=== PATIENT | male | born 1980 | race Caucasian/White ===

== ENCOUNTER 2023-09-08 16:59 | Emergency (ER) | payer BC, SELFPAY ==
[2023-09-08 17:35] VITALS: BP 119/78; PULSE 107; RESP 20; TEMP 37.5; O2SAT 95; BMI 28.1
[2023-09-08 18:25] LABS: PCR FLU A Negative PCR FLU A (Negative); PCR FLU B Negative PCR FLU B (Negative); PCR RSV Negative PCR RSV (Negative)
--- NOTE | 2023-09-08 18:36 | ED.GENADULT ---
HPI - General Adult General Time Seen by Provider: 18:36 Date Seen: 09/08/23 Chief complaint: Cough Stated complaint: Cold symptoms, bronchitis? Time Seen by Provider: 09/08/23 18:18 Source: patient Mode of arrival: ambulatory Limitations: no limitations History of Present Illness HPI narrative: London is a 42-year-old male no past medical history presents emerged department via private car and self with cold-like symptoms. Patient states symptoms started 3 weeks ago, he had ongoing nasal congestion, sore throat and sinus pressure, patient has had a cough minimal, nonproductive, no shortness of breath or chest pain. No fevers or chills, denies any headache, nausea vomiting, abdominal pain, no diarrhea or urinary complaints. Patient usually has cold which resolve over time, this 1 has persisted, with increased sinus congestion, ear fullness and and postnasal drainage. Sinus drainage has been green in color, no history of any sinusitis, patient does smoke 1 pack per day. He is not vaccinated against COVID, patient has had COVID twice in the past. Denies any dizziness or lightheadedness. No sick contacts. Due to persistent symptoms he presents emergency department Related Data Previous Rx's Medication Instructions Recorded amoxicillin 875 mg tablet 875 mg PO BID 10 days #20 tabs 09/08/23 Allergies Allergy/AdvReac Type Severity Reaction Status Date / Time No Known Drug Allergies Allergy Verified 09/08/23 17:39 Review of Systems Status of ROS: Reports: 10 or more systems reviewed and unremarkable except as noted in History and below PFSH PFSH Social History Smoking Status: Current every day smoker What tobacco products do you use: cigarettes How often do you have a drink containing alcohol: never AUDIT-C Alcohol total score: 0 Non-prescribed substance use: marijuana (any form) Exam Narrative: Exam Narrative: General: No obvious distress sitting comfortably HEENT: Oropharynx shows mild post oropharyngeal erythema, no adenopathy, bilateral TMs with cloudy effusion, mild left TM erythema. Tender to palpation of frontal and maxillary sinuses, worse with leaning forward. Lungs: Clear to auscultation bilaterally Heart; normal sinus rhythm S1-S2 Muscle skeletal: +5 strength upper lower extremities Neuro: Alert awake and oriented x3 Const: Vital Signs, click to edit/add: Vital Signs - 24 hr 09/08/23 17:35 Temperature 99.5 F Pulse Rate [Pulse Oximeter] 107 H Respiratory Rate 20 Blood Pressure [Ri ght Upper Arm] 119/78 Pulse Oximetry 95 Oxygen Delivery Me thod Room Air Course Course ED Course: 6:30 PM: AIDET performed, vitals are normal at this time, mild sinus tachycardia. Workup will include SARs/influenza/RSV nasopharyngeal swab, likely treat with amoxicillin 875 mg b.i.d. over the next 10 days due to ongoing sinus congestion, discussed using Afrin [id number]. Differential diagnosis include but not limited to viral illness, pneumonia, strep pharyngitis, viral pharyngitis, COVID-19, influenza a/B, RSV bronchitis, acute sinusitis, otitis externa and media, allergic rhinitis, postnasal drip, medication side effect. Reevaluation(s) Reevaluation #1: Plan to discharge, SARs/influenza/RSV nasopharyngeal swabs were negative, he will follow up with primary care provider over the next 7-10 days. Reasons return were given. Vital Signs Vital signs: Initial Vital Signs Temperature 99.5 F 09/08/23 17:35 Temperature Source Temporal Artery Scan 09/08/23 17:35 Pulse Rate 107 H 09/08/23 17:35 Pulse Rhythm Regular 09/08/23 17:35 Respiratory Rate 20 09/08/23 17:35 Blood Pressure 119/78 09/08/23 17:35 Blood Pressure Mean 91 09/08/23 17:35 Blood Pressure Position Sitting 09/08/23 17:35 Pulse Oximetry 95 09/08/23 17:35 Oxygen Delivery Method Room Air 09/08/23 17:35 Vital Signs Temperature 99.5 F 09/08/23 17:35 Pulse Rate 107 H 09/08/23 17:35 Respiratory Rate 20 09/08/23 17:35 Blood Pressure 119/78 09/08/23 17:35 Pulse Oximetry 95 09/08/23 17:35 Oxygen Delivery Method Room Air 09/08/23 17:35 Temperature 99.5 F 09/08/23 17:35 Pulse Rate 107 H 09/08/23 17:35 Respiratory Rate 20 09/08/23 17:35 Blood Pressure 119/78 09/08/23 17:35 Pulse Oximetry 95 09/08/23 17:35 Oxygen Delivery Method Room Air 09/08/23 17:35 Medical Decision Making Lab Data Labs: Lab Results 09/08/23 Range/Units 17:40 SARS-CoV-2 (PCR) Negative SARS-CoV-2 (Negative) Influenza Type A (PCR) Negative PCR FLU A (Negative) Influenza Type B (PCR) Negative PCR FLU B (Negative) RSV (PCR) Negative PCR RSV (Negative) Discharge Plan Discharge Clinical Impression: Sinusitis, Upper respiratory infection, viral Patient Disposition: Home, Self-Care Condition: Improved Instructions: Sinusitis (ED), Upper Respiratory Infection (ED) Additional Instructions: Amoxicillin 875 mg twice daily for the next 10 days, [id number] Afrin or saline nasal spray, for ongoing nasal congestion, follow-up with primary care provider over the next 7-10 days for ER followup and recheck. Prescriptions: New amoxicillin 875 mg tablet 875 mg PO BID 10 Days Qty: 20 0RF Stand Alone Forms: [employer] Info Instructions
[2023-09-08 18:41] LABS: SARS PCR* Negative SARS-CoV-2 (Negative)
== END 2023-09-08 19:11 | disposition home or self-care (01) ==
LOC: ED 19:08
PROVIDERS: Emergency Provider Student in an Organized Health Care Education/Training Program
DX: J32.9 Chronic sinusitis, unspecified (principal); J06.9 Acute upper respiratory infection, unspecified
CPT/HCPCS: 87631; 99283; 99284

== ENCOUNTER 2023-11-06 23:02 | Emergency (ER) | payer OTHER, SELFPAY ==
[2023-11-06 23:09] VITALS: BP 136/82; PULSE 91; RESP 16; TEMP 36.5; O2SAT 97; BMI 32.3
--- NOTE | 2023-11-06 23:12 | CRLHL7_ITS ---
For Patients: As a result of the Century Cures Act, medical imaging exams and procedure reports are released immediately into your electronic medical record. You may view this report before your referring provider. If you have questions, please contact your health care provider. Indication: Fall. Shoulder pain. Technique: Three views of the left shoulder. Comparison: None Findings/Impression: No acute fracture or dislocation. Glenohumeral and acromioclavicular joint alignments are anatomic. Productive osseous changes of the distal left clavicle, may reflect chronic sequela of remote trauma. Visualized portions of the lungs are grossly clear. Dictated by Erlinda Nettles MD @ 11/06/2023 11:42:24 PM (Electronically Signed)
--- NOTE | 2023-11-06 23:15 | ED_ITS ---
HPI - Extremity Problem General Date Seen: 11/06/23 Chief complaint: Shoulder Injury/Pain Stated complaint: Shoulder Injury at work - L Shoulder. 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 He initially tried to go to the clinic, but he worked through this and was unable to get to the clinic but tonight because the pain, he comes in today to be seen. No previous history of shoulder issues, no numbness tingling or weakness no other injury to his neck back or shoulders, no loss of conscious associated with this any did take some ibuprofen tonight. Any sort of pain with any sort abduction now, with less range of motion, both internal and external rotation of his left arm causes pain also. MD Complaint: extremity pain Onset (ago): hour(s) Pain Consistency: constant Location: left Quality: stabbing and sharp Relieving factors: nothing Exacerbating factors: range of motion Associated symptoms: denies other symptoms Related Data Allergies Allergy/AdvReac Type Severity Reaction Status Date / Time No Known Drug Allergies Allergy Verified 11/06/23 23:12 Review of Systems Status of ROS: Reports: 10 or more systems reviewed and unremarkable except as noted in History and below PFSH PFSH Social History Smoking Status: Current every day smoker What tobacco products do you use: cigarettes How often do you have a drink containing alcohol: never AUDIT-C Alcohol total score: 0 Non-prescribed substance use: marijuana (any form) Exam Narrative: Exam Narrative: On examination patient is in no apparent distress, pleasant alert, he is able to abduct to almost 70?, pain is over the anterior part of his shoulder. There is no loss of symmetry left versus right. 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 Internal external rotation with his arm abducted, is entirely normal. Neck has full range of motion with no limitation also. Const: Vital Signs, click to edit/add: Vital Signs - 24 hr 11/06/23 23:09 Temperature 97.7 F Pulse Rate [Pulse Oximeter] 91 Respiratory Rate 16 Blood Pressure [Ri ght Upper Arm] 136/82 Pulse Oximetry 97 Oxygen Delivery Me thod Room Air Documenting provider has reviewed patient's vital signs: yes Course Course ED Course: I went over the x-rays with the patient, old distal clavicle air fractures noted, which he reminded me of. No evidence of any dislocation or otherwise fracture seen. I suspect that this is rotator cuff injury, although I do not think it is a complete tear. I recommend non sling in him, use of some Toradol, ibuprofen Tylenol. And follow-up next week if ongoing signs symptoms, he was comfortable this ice over the weekend. Vital Signs Vital signs: Initial Vital Signs Temperature 97.7 F 11/06/23 23:09 Temperature Source Temporal Artery Scan 11/06/23 23:09 Pulse Rate 91 11/06/23 23:09 Respiratory Rate 16 11/06/23 23:09 Blood Pressure 136/82 11/06/23 23:09 Blood Pressure Mean 100 11/06/23 23:09 Pulse Oximetry 97 11/06/23 23:09 Oxygen Delivery Method Room Air 11/06/23 23:09 Vital Signs Temperature 97.7 F 11/06/23 23:09 Pulse Rate 91 11/06/23 23:09 Respiratory Rate 16 11/06/23 23:09 Blood Pressure 136/82 11/06/23 23:09 Pulse Oximetry 97 11/06/23 23:09 Oxygen Delivery Method Room Air 11/06/23 23:09 Temperature 97.7 F 11/06/23 23:09 Pulse Rate 91 11/06/23 23:09 Respiratory Rate 16 11/06/23 23:09 Blood Pressure 136/82 11/06/23 23:09 Pulse Oximetry 97 11/06/23 23:09 Oxygen Delivery Method Room Air 11/06/23 23:09 Medications Administered Medications: Discontinued Medications Generic Name Dose Route Start Last Admin Trade Name Freq PRN Reason Stop Dose Admin Acetaminophen 1,000 mg 11/06/23 23:12 11/06/23 23:32 Acetaminophen 500 Mg Tablet PO 11/06/23 23:13 1,000 mg ONCE ONE Administration Ketorolac Tromethamine 30 mg 11/06/23 23:53 11/07/23 00:04 Ketorolac 30 Mg/Ml Inj IM 11/06/23 23:54 30 mg ONCE ONE Administration MDM - Extremity (Nontraumatic) MDM Narrative Medical decision making narrative: I discussed with him, that we should get an x-ray, I do suspect that he did or at least did not dislocated shoulder, he may a subluxed, but more likely this is rotator cuff injury, I am not getting a feeling that this is an AC joint injury, elbow injury, tear of his biceps, or a radiculopathy type situation Imaging Data Shoulder X: Attestation: I have reviewed the pertinent imaging results. My impression: No evidence dislocation fracture, old well-healed clot distal clavicle fracture noted Discharge Plan Discharge Clinical Impression: Injury of shoulder, left Patient Disposition: Home, Self-Care Condition: Stable Additional Instructions: Home rest Tylenol 1 g 3 times a day, ibuprofen 800 mg 3 times a day, ice is also helpful. Limited movement is also good too. Doing those exercises that we talked about. Light activity next week, and follow-up with your regular physician. May need physical therapy to further help heal Activity Level: Light activity Follow Up/Referrals: Jean Paul London MD [Staff Physician] - Provider,Not a Local [Primary Care Provider] - Stand Alone Forms: [employer] Info Instructions
[2023-11-06] MEDS: ACETAMINOPHEN 500 MG TABLET 1000 MG PO (23:32)
[2023-11-07] MEDS: KETOROLAC 30 MG/ML inj IM (00:04)
== END 2023-11-07 00:05 | disposition home or self-care (01) ==
PROVIDERS: Emergency Provider Family Medicine
DX: S49.92XA Unspecified injury of left shoulder and upper arm, initial encounter (principal)
CPT/HCPCS: 73030; 96372; 99283; 99284; A9270; J1885

== ENCOUNTER 2025-05-19 17:27 | Outpatient (CLI) | payer OTHER, SELFPAY | END 2025-05-19 17:28 | disposition home or self-care (01) | LOC: AMB 05-25 10:51 | PROVIDERS: Visit Provider Family Medicine | DX: S29.9XXA Unspecified injury of thorax, initial encounter (principal); V23.49XA Other motorcycle driver injured in collision with car, pick-up truck or van in traffic accident, initial encounter; Y92.410 Unspecified street and highway as the place of occurrence of the external cause | CPT/HCPCS: A0998 ==

== ENCOUNTER 2025-05-19 19:21 | Emergency (ER) | payer OTHER, SELFPAY ==
--- OUTSIDE RECORDS SUMMARY | 2025-04-05 03:49 | XMS_ITS | Encounter Summary ---
Author Organization [facility] Address [address] [place] [id number] Care Team Providers Care Clinical Account Manager Name Role Phone No Ref-Primary, Physician Primary Care Provider No Ref-Primary, Physician Unavailable [phone] Reason for Visit * Reason Comments Otalgia Encounter Details Date Type Department Care Team ([facility] st Contact Info) Description 04/05/2025 3:49 AM CDT - 04/05/2025 4:29 AM CDT Emergency [facility] [address] [place] [id number] [phone] Elvia Orona MD [facility] [address] [place] [address] Otalgia, bilateral; Tobacco dependence Discharge Disposition: Home or Self Care Social History Tobacco Use Types Packs/Day Years Used Date Smoking Tobacco: Every Day Cigarettes Smokeless Tobacco: Never Alcohol Use Standard Drinks/Week Comments Yes 0 (1 standard drink = 0.6 oz pur e alcohol) Adolescent Education Answer Date Record ed Getting School Help Needed Not on file 08/02 Sex and Gender Information Value Date Recorded Sex Assigned at Not on file 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 Gender Identity Not on file Sexual Orientation Not on file documented as of this encounter Last Filed Vital Signs Vital Sign Reading Time Taken Comments Blood Pressure 105/68 04/05/2025 4:20 AM CDT Pulse 85 04/05/2025 4:20 AM CDT Temperature 37.1 C (98.7 F) 04/05/2025 3:48 AM CDT Respiratory Rate 18 04/05/2025 4:20 AM CDT Oxygen Saturation 98% 04/05/2025 4:20 AM CDT Inhaled Oxygen Concentration - - Weight 89.2 kg (196 lb 10.4 oz) 04/05/2025 3:48 AM CDT Height - - Body Mass Index 30.8 09/11/2018 10:53 PM 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 Try to stop smoking. I recommend ibuprofen which has anti-inflammatory properties but please take this with food. Without fever and several months of symptoms, this is not consistent with a bacterial infection. Ifyou have ongoing issues with pain and swollen lymph nodes you should see ENT. Return with worsening or new concerns. * Attachments The following attachments cannot be sent through Care Everywhere. * Eustachian Tube Problems (German) documented in this encounter Medications at Time of Discharge ibuprofen (ADVIL/MOTRIN) 200 MG tablet Take 2 tablets (400 mg) by mouth every 6 hours as needed for pain 60 tablet 09/12/2018 oxyCODONE-acetami nophen (PERCOCET) 5-325 MG tablet Take 1-2 tablets by mouth every 4 hours as needed for pain 12 tablet 09/12/2018 documented as of this encounter ED Notes * Jatin Whitt RN - 04/05/2025 4:28 AM CDT Pt discharged. Discharged instructions and papers given. Discharged ambulatory in stable condition.A&Ox4 * Elvia Orona MD - 04/05/2025 3:49 AM CDT Emergency Department Note History of Present Illness Chief Complaint Otalgia HPI Zak Tamayo is a 44 year old male smoker who presents alone for evaluation of otalgia. He reports 5 months of bilateral otalgia remarking that which ear is affected and the severity of pain seems to vary depending on the day. He did not have time to get this evaluated until tonight. He has had occasional cough and a buildup of mucus that has not improved with Mucinex. He reports intermittent swelling of his lymph nodes but no fever. He read online that this is likely indicative of a bacterial infection and believes he has a double ear infection. Independent Historian None Review of External Notes No recent relevant notes Past Medical History Medical History and Problem List No pertinent past medical history Medications The patient is not currently taking any prescribed medications. Surgical History Hernia repair Wrist surgery Physical Exam Patient Vitals for the past 24 hrs: BP Temp Temp src Pulse Resp SpO2 Weight 04/05/25 0420 105/68 -- -- 85 18 98 % -- 04/05/25 0348 129/88 98.7 ??F (37.1 ??C) Temporal 93 16 97 % 89.2 kg (196 lb 10.4 oz) Physical Exam General: Well-developed and well-nourished. Well appearing middle-age man. Cooperative. Head: Atraumatic. Eyes: Conjunctivae, lids, and sclerae are normal. ENT: Normal nose. Moist mucous membranes. There is no erythema or effusion of TMs bilaterally with some suggestion of scarring bilaterally. Neck: Supple. Normal range of motion. No large lymphadenopathy. CV: Warm and well-perfused. Resp: No respiratory distress. Clear to auscultation bilaterally without decreased breath sounds, wheezing, rales, or rhonchi. GI: Non-distended. MS: Normal ROM. Skin: Warm. Non-diaphoretic. No pallor. Neuro: Awake. A&Ox3. Normal strength. Psych: Normal mood and affect. Normal speech. Vitals reviewed. Diagnostics Not applicable ED Course ED Course ED Course as of 04/05/25 0526 ThuApr 05, 2025 035 I obtained history and examined the patient as noted above. 0405 I prepared the patient to be discharged home. Additional Documentation Social Determinants of Health: Employed Medical Decision Making / Diagnosis BRANDON Crespo is a 44 year old man presenting with 5 months of waxing and waning bilateral otalgia with mucus buildup and intermittent swollen lymph nodes without fever. He believes his symptoms represent a bacterial infection. However, he is quite well-appearing on exam. He is afebrile and chronicity of symptoms alone makes an acute infection unlikely. Indeed, he did not have change in symptoms today but, rather, time to come as he is off work. TMs appear scarred bilaterally but there is no erythema or effusion. I do not appreciate large lymphadenopathy. His lungs are clear. I suspect his pain is related to eustachian tube dysfunction and he admits to occasional dizziness. This is probably multifactorial with possible viral illness initially, seasonal allergies, and smoking all contributing.However, there is no evidence of bacterial infection requiring antibiotics. I recommended he use Flonase and [id number] antihistamines. I encouraged him to stop smoking. I recommended he use ibuprofen as needed. I recommended he follow-up with ENT if he has ongoing symptoms despite these treatments. He will return with worsening or new concerns. All questions answered. Amenable to discharge. Disposition The patient was discharged. Diagnosis ICD-10-CM 1. Otalgia, bilateral H92.03 2. Tobacco dependence F17.200 Discharge Medications Discharge Medication List as of 04/05/2025 4:17 AM Scribe Disclosure: ISandi, am serving as a scribe at 4:05 AM on 04/05/2025 to document services personally performed by Elvia Orona MD based on my observations and the provider's statements to me. Elvia Orona MD 04/05/25 0530 * Precious Tamayo RN - 04/05/2025 3:47 AM CDT Pt to ER with c/o bilat ear pain, pt states been going on for the last 2 months just worse now documented in this encounter Plan of Treatment Not on file documented as of this encounter Visit Diagnoses Diagnosis Otalgia, bilateral Tobacco dependence Tobacco use disorder documented in this encounter Care Teams Clinical Account Manager Relationship Specialty Start Date End Date No Ref-Primary, Physician PCP - General 03/24/18 No Ref-Primary, Physician 03/24/18 documented as of this encounter
[2025-05-19] VITALS (20 sets, daily range): BP systolic 96–127; BP diastolic 76–95; PULSE 72–90; RESP 16; TEMP 36.9; O2SAT 96–100; BMI 29.8
--- OUTSIDE RECORDS SUMMARY | 2025-05-19 19:23 | XMS_ITS | Clinical Summary ---
[facility] Address [address] [place] [address] Care Team Providers Care Banbury Operator Name Role Phone Clinician, Not Found MD Primary Care Provider Un available Source Comments You are receiving this document as you are listed as the primary care provider,follow-up provider, or the patient has been referred to you for consultation.This is in compliance with the Medicare andCommunity [facility] Hospital[facility] EHR Incentive Program,which states Providers who transition their patient to another setting of careor provider of care or refers their patient to another provider of care shouldprovide summary care record for each transition of care or referral. 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 Gender Identity Not on file Sexual Orientation Not on file Plan of Treatment Health Maintenance Due Date Last Done Comments Hep C Screening (Preventive Services) 1981 HIV Screening (Preventive Services) 1997 Adult Preventive Visit 1999 HepB Vaccine (1) 2000 Cholesterol 2016 COVID-19 Vaccine ( - 2023-2 5 season) 2024 Influenza Vaccine (#1) 2025 DTaP/Tdap/Td Vaccine (4 - Tdap) 06/27/2028 06/27/2018, 03/10/2010, 09/02/2009 Zoster/Shingles Vaccine (1 o f 2) 2031 HPV Vaccine Aged Out No longer eligi ble based on patient's age to complete this topic HepA Vaccine Aged Out No longer eligi ble based on patient's age to complete this topic Hib Vaccine Aged Out No longer eligi ble based on patient's age to complete this topic IPV (Polio) Vaccine Aged Out No longe r eligible based on patient's age to complete this topic MCV4 Vaccine Aged Out No longer eligi ble based on patient's age to complete this topic Meningococcal B Vaccine Aged Out No l onger eligible based on patient's age to complete this topic Pneumococcal Vaccine Aged Out No long er eligible based on patient's age to complete this topic Insurance [address] [place] [id number] [place] [address] [facility] Care Teams Banbury Operator Relationship Specialty Start Date End Date Clinician, Not Found, [place] [address] PCP - General 10/15/23
--- OUTSIDE RECORDS SUMMARY | 2025-05-19 19:23 | XMS_ITS | Encounter Summary ---
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
--- OUTSIDE RECORDS SUMMARY | 2025-05-19 19:23 | XMS_ITS | Clinical Summary ---
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 Name Role Phone No Ref-Primary, Physician Primary Care Provider No Ref-Primary, Physician Unavailable Allergies Active Allergy Reactions Criticality Noted Date Comments Bees Swelling 06/21/2013 Medications oxyCODONE-aceta minophen (PERCOCET) 5-325 MG tablet Take 1-2 tablets by mouth every 4 hours as needed for pain 12 tablet 09/12/2018 Active ibuprofen (ADVIL/MOTRIN) 200 MG tablet Take 2 tablets (400 mg) by mouth every 6 hours as needed for pain 60 tablet 09/12/2018 Active Encounters Date Type Department Care Team Description 04/05/2025 3:49 AM CDT - 04/05/2025 4:29 AM CDT [facility] Emergency Dept [address] [place] [id number] [phone] Elvia Orona MD Otalgia, bilateral; Tobacco dependence Discharge Disposition: Home or Self Care 04/05/2025 Travel from Last 3 Months Immunizations Immunization Administration Dates Next Due TDAP Vaccine (Adacel) 06/27/2018 Social History Tobacco Use Types Packs/Day Years [...] on file Legal Sex Male 3:27 AM [facility] Gender Identity Not on file Sexual Orientation Not on file Last Filed Vital Signs Vital Sign Reading Time Taken Comments Blood Pressure 105/68 04/05/2025 4:20 AM CDT Pulse 85 04/05/2025 4:20 AM CDT Temperature 37.1 C (98.7 F) 04/05/2025 3:48 AM CDT Respiratory Rate 18 04/05/2025 4:20 AM CDT Oxygen Saturation 98% 04/05/2025 4:20 AM CDT Inhaled Oxygen Concentration - - Weight 89.2 kg (196 lb 10.4 oz) 04/05/2025 3:48 AM CDT Height 170.2 cm (5' 7) 09/11/2018 10:5 3 PM [facility] Body Mass Index 30.8 09/11/2018 10:53 PM [facility] Plan of Treatment Health Maintenance Due Date Last Done Comments ADVANCE CARE PLANNING 1981 ANNUAL REVIEW OF HM ORDERS 1981 YEARLY PREVENTIVE VISIT 1984 HIV SCREENING 1996 HEPATITIS C SCREENING 1999 HEPATITIS B VACCINE (1 of 3 - 19+ 3-dose series) 2000 PNEUMOCOCCAL VACCINE: PEDIATRICS (0 to 5 YEARS) AND AT-RISK PATIENTS (6 to 49 YEARS) (1 of 2 - PCV) 2000 DIABETES SCREENING 09/11/2021 09/11/2018, 06/27/2018 LIPID 2021 COVID-19 VACCINE (1 - 2023-2 5 season) 2024 PHQ-2 (once per calendar year) 2024 INFLUENZA VACCINE (#1) 2025 DTAP/TDAP/TD VACCINE (2 - Td or Tdap) 06/27/2028 06/27/2018 ZOSTER VACCINE (1 of 2) 2031 HPV VACCINE (No Doses Required) Completed MENINGITIS VACCINE Aged Out No longer eligible based on patient's age to complete this topic Procedures Procedure Name Priority Date/Time Associated Diagnosis Comments BASIC METABOLIC PANEL STAT 09/11/2018 11:25 PM [facility] from Last 3 Months or Most Recently Relevant to Health Maintenance Results * (ABNORMAL) Basic metabolic panel (09/11/2018 11:25 PM [facility]) Sodium 140 133 - 144 mmol/L 09/11/2018 11:49 PM [facility] Potassium 3.5 3.4 - 5.3 mmol/L 09/11/2018 11:49 PM [facility] Chloride 106 94 - 109 mmol/L 09/11/2018 11:49 PM [facility] Carbon Dioxide 27 20 - 32 mmol/L 09/11/2018 11:49 PM [facility] Anion Gap 7 3 - 14 mmol/L 09/11/2018 11:49 PM [facility] Glucose 165(H) 70 - 99 mg/dL 09/11/2018 11:49 PM [facility] Urea Nitrogen 12 7 - 30 mg/dL 09/11/2018 11:49 PM [facility] Creatinine 0.87 0.66 - 1.25 mg/dL 09/11/2018 11:49 PM [facility] GFR Estimate >90 >60 mL/min/1.7 m2 09/11/2018 11:49 PM [facility] Comment:Non GFR Calc GFR Estimate If Black >90 >60 mL/min/1.7 m2 09/11/2018 11:49 PM [facility] Comment: GFR Calc Calcium 8.4(L) 8.5 - 10.1 mg/dL 09/11/2018 11:49 PM [facility] Blood specimen (specimen) 09/11/2018 11:25 PM [facility] 09/11/2018 11:29 PM [facility] Mario Umana MD LAB - BLOOD ORDERABLES Final Result [facility] [id number] [address], [facility] [phone] from Last 3 Months or Most Recently Relevant to Health Maintenance Insurance NONE (Work) [address] [facility] [place] [id number] [employer] Care Teams Rubber Thread Spooler Relationship Specialty Start Date End Date No Ref-Primary, Physician PCP - General 03/24/18 No Ref-Primary, Physician 03/24/18
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
[2025-05-19 19:53] LABS: Hematocrit 47.1 % (37.0-53.0); Hemoglobin* 15.9 gm/dL (13.5-17.5); Immature Granulocytes Abs Auto 0.10 K/uL (0.00-0.30); Immature Granulocytes Pct Auto 0.6 %; Mean Corpuscular HGB Conc 34 gm/dL (32-36); Mean Corpuscular Hemoglobin 31 pg (26-34); Mean Corpuscular Volume 92 fL (80-100); RDW Coefficient of Variation % 13.0 % (11.5-15.5); Red Blood Count 5.10 m/uL (4.30-5.90); White Blood Count* 15.69 K/uL (4.50-11.00)
[2025-05-19 19:55] LABS: Lymphocytes Absolute Auto 1.80 K/uL (0.90-2.90)
[2025-05-19 19:56] LABS: Slide Review Reflex No
[2025-05-19 20:08] LABS: Chloride* 108 mmol/L (96-114); Potassium* 3.7 mmol/L (3.6-5.1); Sodium* 138 mmol/L (135-149)
[2025-05-19 20:10] LABS: INR 0.94 (0.91-1.10); Prothrombin Time 13.4 Seconds
[2025-05-19 20:11] LABS: Anion Gap 6 mEq/L (7-15); Blood Urea Nitrogen* 11 mg/dL (5-24); Calcium* 9.1 mg/dL (8.4-10.6); Carbon Dioxide* 24 mmol/L (20-32); Creatinine* 0.9 mg/dL (0.5-1.5); Est. Creatinine Clearance* 98.95; Estimated Glomerular Filt Rate 109 ml/min; Glucose* 114 mg/dL (60-115)
[2025-05-19 20:15] LABS: Ethanol* < 0.01 % (0.01-0.03)
== END 2025-05-19 22:00 | disposition home or self-care (01) ==
PROVIDERS: Emergency Provider Emergency Medicine
DX: S22.32XA Fracture of one rib, left side, initial encounter for closed fracture (principal); S92.102A Unspecified fracture of left talus, initial encounter for closed fracture; I77.810 Thoracic aortic ectasia; V23.49XA Other motorcycle driver injured in collision with car, pick-up truck or van in traffic accident, initial encounter
CPT/HCPCS: 36415; 70450; 71260; 72125; 73630; 73650; 74177; 80048; 82077; 85025; 85610; 94761; 96374; 99284; 99291; A9270; J1171; J7030; Q9967